=== PATIENT | female | born 1935 | race Caucasian/White ===

== ENCOUNTER → 2016-09-25 | Outpatient (CLI) | payer MEDICARE, OTHER ==
--- NOTE | 2016-09-26 21:23 | MRI ---
EXAM DESCRIPTION: Brain w/oContrast CLINICAL HISTORY: DIZZINESS AND GIDDINESS COMPARISON: None TECHNIQUE: Multiplanar images of the brain were obtained without the administration of intravenous contrast FINDINGS: There is moderate atrophy with prominence of the ventricles and sulci. There is no evidence of midline shift or mass effect. There is no evidence of restricted diffusion to suggest area of acute infarct. There is mild periventricular white matter disease and microvascular ischemic changes. There are symmetric flow voids in the carotid siphons. Distal right vertebral artery appears small in caliber. Atrophic left and in the right globe. Small amount of mucosal thickening in the ethmoid air cells. IMPRESSION: Atrophy with periventricular white matter disease and mild microvascular ischemic changes No evidence of acute process, specifically no evidence of acute infarct Electronically signed by: Sagrario Rincon 09/26/2016 9:23 PM CDT
--- NOTE | 2016-09-27 15:33 | US ---
Procedure: US CAROTID DOPPLER BILATERAL Exam Date: 09/25/2016 Ordering Provider: CAROLA PAZ Clinical Indication: OCCLUSION AND STENOSIS OF LT CAROTID Comparison: None TECHNIQUE : Real-time cerebrovascular ultrasonography was obtained from sternal notch to the angle of the mandible bilaterally utilizing murillo scale, color flow and spectral Doppler analysis. Systolic velocity ratios were calculated for internal carotid artery to common carotid artery bilaterally. FINDINGS: RIGHT CAROTID BIFURCATION: Mild atherosclerotic plaque. Peak systolic and end-diastolic velocities in the right internal carotid artery are 65 and 14 cm/s. Internal carotid/common carotid ratio is 1.0. Right vertebral flow is antegrade. LEFT CAROTID BIFURCATION: Mild atherosclerotic plaque. Peak systolic and end-diastolic velocities in the left internal carotid artery are 79 and 9.5 cm/s. Internal carotid/common carotid ratio is 1.3. Left vertebral flow is antegrade. IMPRESSION: 1. Mild atherosclerotic plaque in each carotid bulb and ICA origin. 2. There is no significant stenosis (less than 50%) at either ICA origin. 3. Bilateral antegrade vertebral artery flow. Electronically signed by: Jai Garcia MD 09/27/2016 3:32 PM CDT
== END ==
LOC: US 13:54
PROVIDERS: ATTEND Family Medicine
DX: I65.22 Occlusion and stenosis of left carotid artery (principal); R42 Dizziness and giddiness